=== PATIENT | female | born 1940 | race Hispanic/Latino ===

== ENCOUNTER → 2019-12-18 | Day surgery (SDC) | payer OTHER ==
--- NOTE | 2019-12-16 15:30 | EKG ---
Test Date: 2019-12-16 Test Time: 15:25:16 Groundman/Lineman: KAILASH MEASUREMENT RESULTS: Intervals: Rate: 88 IL: 150 QRSD: 132 QT: 436 QTc: 527 [place]: P: 64 IL: 150 QRS: -41 T: 81 INTERPRETIVE STATEMENTS: Normal sinus rhythm Left axis deviation Left bundle branch block Abnormal ECG No previous ECG available for comparison Electronically Signed On 12-16-19 15:29:36 WIRER by Remi Giron
[~2019-12-18] MED LIST: FENTANYL CITR 250 MCG/5 ML ONE; GLYCOPYRROLATE 0.2 MG/ML SYR ONE; INSULIN -REGULAR HUMAN 50 UNIT/0.5 ML ML ONE; LIDOCAINE 1% W/EPI 1:100,000 MDV 20 ML VIAL ONE; LIDOCAINE 2% MPF 5 ML VIAL ONE; MIDAZOLAM HCL 2 MG/2 ML INJ ONE; NA CHLORIDE 0.9% 1,000 ML ONE; NA CHLORIDE 0.9% 500 ML ONE; NEOSTIGMINE 1 MG/ML -5 ML ONE; OXYMETAZOLINE HCL 0.05% 15ML NAS ONE; ROCURONIUM 50 MG/5 ML VIAL IV ONE; TRAMADOL HCL 50 MG TAB ONE; dexAMETHasone 10 MG/ML VIAL ONE; propofoL 200 MG/20 ML VIAL IV ONE
--- OUTSIDE RECORDS SUMMARY | 2019-12-18 08:49 | XMS REPORT ---
:1940 Author Organization eClinicalWorks Care Team Providers Name Role Phone Chun, Na Provider Role Unavailable Allergies No Known Allergies Problems Problem Type Condition Code Onset Dates Condition Status Problem Closed nondisplaced transverse S82.034A Active fracture of right patella, initial encounter Problem Chronic congestion of paranasal J32.9 Active sinus Problem Closed nondisplaced transverse S82.034D Active fracture of right patella with routine healing Assessment Type 2 diabetes mellitus without E11.9 Active complications Problem Pain, joint, knee, right M25.561 Active Problem Acquired hypothyroidism E03.9 Active Problem Overactive bladder N32.81 Active Problem Essential hypertension I10 Active Problem Gastroesophageal reflux disease, K21.9 Active esophagitis presence not specified Problem Age related osteoporosis, M81.0 Active unspecified pathological fracture presence Problem Type 2 diabetes mellitus without E11.9 Active complications Problem prison (current) use of insulin Z79.4 Active Medications Medication Code Code Instructions Start End Status Dosage System Date Date Accu-Chek NDC 14847865349 - twice a day Nov 25, Active as directed Softclix 2019 Lancets Accu-Chek NDC 0 - sc TWICE A Nov 19, Inactive as directed Softclix DAY 2019 Lancet Dev Results No Known Results Summary Purpose eClinicalWorks Submission
--- OUTSIDE RECORDS SUMMARY | 2019-12-18 08:49 | XMS REPORT ---
:1940 Author Organization eClinicalWorks Care Team Providers Name Role Phone Chun, Na Provider Role Unavailable Allergies, Adverse Reactions, Alerts Substance Reaction Event Type N.K.D.A. Info Not Available Non Drug Allergy Problems Problem Type Condition Code Onset Dates Condition Status Problem Closed nondisplaced transverse S82.034A Active fracture of right patella, initial encounter Problem Chronic congestion of paranasal J32.9 Active sinus Problem Closed nondisplaced transverse S82.034D Active fracture of right patella with routine healing Problem Acquired hypothyroidism E03.9 Active Assessment Age related osteoporosis, M81.0 Active unspecified pathological fracture presence Problem Overactive bladder N32.81 Active Assessment [facility] (current) use of insulin Z79.4 Active Problem Essential hypertension I10 Active Problem Gastroesophageal reflux disease, K21.9 Active esophagitis presence not specified Problem Age related osteoporosis, M81.0 Active unspecified pathological fracture presence Problem Type 2 diabetes mellitus without E11.9 Active complications 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 Assessment Muscle cramps R25.2 Active Assessment Gastroesophageal reflux disease, K21.9 Active esophagitis presence not specified Assessment Vertigo R42 Active Assessment Chronic congestion of paranasal J32.9 Active sinus Assessment Essential hypertension I10 Active Assessment Type 2 diabetes mellitus without E11.9 Active complications Assessment Overactive bladder N32.81 Active Assessment Acquired hypothyroidism E03.9 Active Problem Pain, joint, knee, right M25.561 Active Medications Medication Code Code Instructions Start End Status Dosage System Date Date Myrbetriq [facility] 95400659386 25 MG Orally Nov 19April Active 1 tablet Once a day 2019 Metformin HCl [facility] 90636587656 1000 MG Oral Active 1 tablet TWICE A DAY with a meal Levothyroxine Sodium [facility] 42302647396 75 MCG Oral Active 1 tablet Once a day in the morning on an empty stomach MAGnesium-Oxide [facility] 09806022393 400 (241.3 Mg) Active 1 tablet MG Orally Once with food a day Myrbetriq [facility] 02276951895 25 MG Orally Active 1 tablet Once a day Cranberry Plus [facility] 39956356438 4200-20-3 Active as Vitamin C MG-MG-UNIT directed Orally daily Accu-Chek Softclix ND 0 - sc TWICE A Nov 19, Active as Lancet Dev DAY 2019 directed Unifine Pentips [facility] 83813794359 31G X 6 MM sc Nov 19, Active as TWICE A DAY 2019 directed Omeprazole [facility] 30408575421 20 MG Oral Active 1 capsule Once a day 30 minutes before morning meal Hydrochlorothiazide [facility] 70000791012 12.5 MG Orally Active 1 tablet ONCE A DAY Amlodipine Besylate [facility] 41882237867 2.5 MG Orally Active 1 tablet Once a day Levemir FlexTouch [facility] 09534117571 100 UNIT/ML Active 40 units Subcutaneous twice a day D3 High Potency [facility] 25507978235 125 MCG (5000 Active 1 capsule UT) Orally Once a day Levemir FlexTouch [facility] 45015692057 Sub Q daily Nov 19, Active 15 unis in 2019 AM and 25 units in PM Accu-Chek Avani Plus [facility] 05570563794 - In Vitro Nov 19, Active as twice daily 2019 directed Results No Known Results Summary Purpose eClinicalWorks Submission
--- NOTE | 2019-12-18 12:26 | P.BOP ---
Preoperative diagnosis: chronic maxillary sinusitis Postoperative diagnosis: same Primary procedure: NE with R max antrostomy and removal of sinus contents Operator Catalyst Concentration: NONE,NONE Estimated blood loss: 30ml Specimen: R max sinus/contents and culture Findings: thick green debris Anesthesia: General Complications: None Implants: Xerogel Fluids & blood products: 750ml crystalloid Transferred to: Recovery Room Condition: Good
[2019-12-18 15:12] VITALS: BP 135/60; TEMP 98; O2SAT 96
--- NOTE | 2019-12-21 02:47 | OP ---
Date of Procedure: 12/18/2019 Surgeon: Ivette Washburn MD Preoperative Diagnoses: Chronic hoarseness, chronic maxillary sinusitis with postnasal drainage. Postoperative Diagnoses: Chronic hoarseness, chronic maxillary sinusitis with postnasal drainage. Procedure: Nasal endoscopy with maxillary antrostomy and removal of sinus contents. Complications: None. Specimens: Right maxillary sinus contents and culture. Findings: Thick purulent postnasal drainage with very thick debris concerning for a fungal ball. Indication For Procedure: The patient is a 79-year-old who presented with a 6 month history of hoars eness, chronic cough, and postnasal drainage. During her evaluation, she was noted to have thick pur ulence from the right sinus cavity and was treated with maximal medical therapy. She had persistent symptoms with significant endoscopic findings with the drainage from the right middle meatus and a po sttreatment CT scan demonstrated new complete opacification of the right maxillary sinus. The risks, benefits, and alternatives were discussed with the patient and her daughter. They agreed to proceed . Description Of Procedure: The patient was brought to the operating room. She was placed under gener al anesthesia via oral endotracheal tube. The head of bed was turned 90 degrees and the patient's na fany hairs were trimmed. The patient's nasal cavity was packed with Afrin-soaked pledgets and the pat ient was draped for sinonasal surgery. The Afrin-soaked pledgets were removed and a 0-degree endosco pe was used to perform a nasal endoscopy. Significant findings included inflammation in the middle m eatus with severe erythema of the ethmoid bulla and thick purulent secretions at the leading edge of the uncinate process with thick mucopurulent secretions flowing from the middle meatus to the nasopha rynx so the documentation was obtained. The uncinate process was then carefully palpated with the lester mcintoshllary seeker and removed using the backbiter and 90-degree Blakesley. The maxillary sinus was fill ed with thick, crumbly, dark green material. The maxillary antrostomy was enlarged using the 90 degr ee Blakesley and the sinus contents were removed using forceful saline irrigation and suction. Numer ous aliquots of saline and suctioning were required. There was persistence of thick degree in the in ferior aspect and visualized with a 70 degree endoscope. The 90 degree curette was used to try to mo bilize and loosen this debris. When all visible debris was removed, the sinus was thoroughly irrigat ed and a Xeroform dissolvable nasal dressing was packed in the middle meatus to aid in hemostasis. S ample of the material was sent for culture including fungal stain. The procedure was then concluded and the patient returned to care of anesthesia for extubation in the operating room and transportatio n to the recovery room. The patient will follow up with Dr. Washburn in 10-12 days for evaluating of hearing. GIANNI/LITO Voice ID: [id number] Report ID: [id number]
== END ==
LOC: OR 08:46
PROVIDERS: ATTEND Otolaryngology
PROC: 099Q8ZZ Drainage of Right Maxillary Sinus, Via Natural or Artificial Opening Endoscopic (ICD-10-PCS; principal; 2019-12-18 10:00)
DX: J32.0 Chronic maxillary sinusitis (principal); R49.0 Dysphonia; E11.9 Type 2 diabetes mellitus without complications; I10 Essential (primary) hypertension; E07.9 Disorder of thyroid, unspecified
CPT/HCPCS: 93005; 87070; 87205 ×2; 88312; 82947 ×3; 88304; 88311; 87075; 87077; 87186; 31267; J2704; J2250; J3010; J1100; J7040; J7030; J2710

== ENCOUNTER 2020-02-15 22:42 | Emergency (ER) | payer OTHER ==
--- OUTSIDE RECORDS SUMMARY | 2020-02-15 22:45 | XMS REPORT ---
[...] of right patella with routine healing Assessment Asymptomatic postmenopausal Z78.0 Active estrogen deficiency Assessment Medicare annual wellness visit, Z00.00 Active subsequent Problem Pain, joint, knee, right M25.561 Active Problem Acquired hypothyroidism E03.9 Active Problem Overactive bladder N32.81 Active Problem Essential hypertension I10 Active Problem Gastroesophageal reflux disease, K21.9 Active esophagitis presence not specified Problem Age related osteoporosis, M81.0 Active unspecified pathological fracture presence Problem Type 2 diabetes mellitus without E11.9 Active complications Problem 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 Medications Medication Code Code Instructions Start End Status Dosage System Date Date Accu-Chek Avani Plus ND 83820229712 - In Vitro Nov 19, Active as twice daily 2019 directed Unifine Pentips ND 66469815910 31G X 6 MM sc Nov 19, Active as TWICE A DAY 2019 directed Hydrochlorothiazide ND 04853884720 12.5 MG Orally Active 1 tablet ONCE A DAY Myrbetriq ND 43155165588 25 MG Orally Active 1 tablet Once a day D3 High Potency ND 95462759647 125 MCG (5000 Active 1 capsule UT) Orally Once a day Levemir FlexTouch ND 49040732461 Sub Q daily Nov 19, Active 15 unis in 2020 AM and 25 units in PM Metformin HCl ND 26866167237 1000 MG Oral Active 1 tablet TWICE A DAY with a meal Levothyroxine Sodium ND 50517943226 75 MCG Oral Active 1 tablet Once a day in the morning on an empty stomach Amlodipine Besylate [facility] 45056227692 2.5 MG Orally Active 1 tablet Once a day Cranberry Plus [facility] 86929937850 4200-20-3 Active as Vitamin C MG-MG-UNIT directed Orally daily Levemir FlexTouch [facility] 26345907545 100 UNIT/ML Active 40 units Subcutaneous twice a day Accu-Chek Softclix [facility] 24858825363 - twice a day Nov 25 Active as Lancets 2020 directed MAGnesium-Oxide [facility] 52844857528 400 (241.3 Mg) Active 1 tablet MG Orally Once with food a day Myrbetriq [facility] 70239894708 25 MG Orally Nov 19April Active 1 tablet Once a day 2019 Omeprazole [facility] 06503725295 20 MG Oral Active 1 capsule Once a day 30 minutes before morning meal Results No Known Results Summary Purpose eClinicalWorks Submission
--- OUTSIDE RECORDS SUMMARY | 2020-02-15 22:45 | XMS REPORT ---
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 Assessment [...] End Status Dosage System Date Date Myrbetriq [facility] 03303195671 25 MG Orally Nov 19April Active 1 tablet Once a day 2019 Metformin HCl [facility] 85961907733 1000 MG Oral Active 1 tablet TWICE A DAY with a meal Levothyroxine Sodium [facility] 32240095852 75 MCG Oral Active 1 tablet Once a day in the morning on an empty stomach MAGnesium-Oxide [facility] 78443299466 400 (241.3 Mg) Active 1 tablet MG Orally Once with food a day Myrbetriq [facility] 59429730629 25 MG Orally Active 1 tablet Once a day Cranberry Plus [facility] 95379235406 4200-20-3 Active as Vitamin C MG-MG-UNIT directed Orally daily Accu-Chek Softclix ND 0 - sc TWICE A Nov 19, Active as Lancet Dev DAY 2019 directed Unifine Pentips [facility] 37790465521 31G X 6 MM sc Nov 19, Active as TWICE A DAY 2019 directed Omeprazole [facility] 15859742449 20 MG Oral Active 1 capsule Once a day 30 minutes before morning meal Hydrochlorothiazide [facility] 83646051090 12.5 MG Orally Active 1 tablet ONCE A DAY Amlodipine Besylate [facility] 54778458147 2.5 MG Orally Active 1 tablet Once a day Levemir FlexTouch [facility] 25573057481 100 UNIT/ML Active 40 units Subcutaneous twice a day D3 High Potency [facility] 69348059831 125 MCG (5000 Active 1 capsule UT) Orally Once a day Levemir FlexTouch [facility] 56471627318 Sub Q daily Nov 19, Active 15 unis in 2019 AM and 25 units in PM Accu-Chek Avani Plus [facility] 39532191626 - In Vitro Nov 19, Active as twice daily 2019 directed Results No Known Results Summary Purpose eClinicalWorks Submission
--- OUTSIDE RECORDS SUMMARY | 2020-02-15 22:45 | XMS REPORT ---
[...] diabetes mellitus without E11.9 Active complications Problem assisted (current) use of insulin Z79.4 Active Medications Medication Code Code Instructions Start End Status Dosage System Date Date Accu-Chek NDC 01299149472 - twice a day Nov 25, Active as directed Softclix 2019 Lancets Accu-Chek NDC 0 - sc TWICE A Nov 19, Inactive as directed Softclix DAY 2019 Lancet Dev Results No Known Results Summary Purpose eClinicalWorks Submission
--- OUTSIDE RECORDS SUMMARY | 2020-02-15 22:45 | XMS REPORT ---
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
[2020-02-15] MEDS ORDERED: MORPHINE 2 MG/ML SYR ONE (23:21)
[2020-02-15] MEDS ORDERED: ONDANSETRON 4 MG/2 ML VIAL ONE (23:21)
[2020-02-15 23:42] LABS: Basophils % 0.5 % (0-1.3); Hematocrit 41.2 % (36.0-45.0); Lymphocytes % 15.9 % (15.3-44.8); MPV 9.3 fL (7.6-11.3); RBC Red Blood Cell Count 4.99 M/uL (3.86-4.86)
[2020-02-15 23:51] LABS: ALT/SGPT 28 U/L (12-78); AST/SGOT 14 U/L (15-37); Albumin 3.7 g/dL (3.4-5.0); Alkaline Phosphatase 142 U/L (45-117); BUN Blood Urea Nitrogen 26 mg/dL (7-18); Bicarbonate 28 mmol/L (21-32); Bilirubin Direct < 0.1 mg/dL (0-0.2); Bilirubin Total 0.1 mg/dL (0.2-1.0); Glucose Level 190 mg/dL (74-106); Lipase 272 U/L (73-393); Potassium 4.3 mmol/L (3.5-5.1); Protein, Total 8.3 g/dL (6.4-8.2); Sodium Level 137 mmol/L (136-145)
[2020-02-16 00:33] LABS: Urine Culture Reflex Order NOT NEEDED
[2020-02-16 00:34] LABS: Urine Blood NEGATIVE (NEG); Urine Glucose TRACE (NEG); Urine Protein NEGATIVE (NEG); Urine Specific Gravity 1.025 (1.005-1.030); Urine pH 6.5 (5.0-7.0)
[2020-02-16 00:35] LABS: Urine Bacteria LOADED /HPF (<20); Urine RBC <5 /HPF (NONE SEEN)
--- NOTE | 2020-02-16 02:50 | EDPHYS ---
Physician Documentation [facility] [place] Name: Jennifer Whittaker Age: 79 yrs Sex: Female : 1940 Arrival Date: 02/15/2020 Time: 22:45 Bed 20 Private MD: YONATHAN Physician Feliciano Dixon HPI: 02/14 23:06 This 79 yrs old Female presents to ER via Wheelchair with complaints of jmm Abdominal Pain, Side Pain. 23:06 The patient presents with abdominal pain. Onset: The symptoms/episode began/occurred jmm gradually, at 11:00. The symptoms radiate to. Associated signs and symptoms: Pertinent negatives: diarrhea, vomiting. Modifying factors: The symptoms are alleviated by nothing, the symptoms are aggravated by movement. Historical: - Allergies: 23:03 No Known Allergies; mg2 - Home Meds: 23:03 Omeprazole Oral [Active]; rosuvastatin oral oral [Active]; amlodipine oral [Active]; mg2 magnesium oxide 400 mg Oral tab [Active]; cranberry oral oral [Active]; Metformin Oral [Active]; Hydrochlorothiazide Oral [Active]; levothyroxine oral [Active]; - PMHx: 23:03 Hypertension; Hyperlipidemia; Diabetes - IDDM; Hypothyroidism; mg2 - PSHx: 23:03 Cholecystectomy; Hysterectomy; kidney stones removal; mg2 - Immunization history:: Flu vaccine is not up to date. - Social history:: Smoking status: Patient denies any tobacco usage or history of. Patient/guardian denies using alcohol, street drugs, IV drugs. ROS: 23:06 Constitutional: Negative for fever, chills, and weight loss, Cardiovascular: Negative jmm for chest pain, palpitations, and edema, Respiratory: Negative for shortness of breath, cough, wheezing, and pleuritic chest pain. 23:06 Abdomen/GI: Positive for abdominal pain. 23:06 Back: Positive for pain with movement. 23:06 All other systems are negative. Exam: 23:06 Head/Face: atraumatic. Eyes: EOMI, no conjunctival erythema appreciated ENT: Moist jmm Mucus Membranes Neck: Trachea midline, Supple Chest/axilla: Normal chest wall appearance and motion. Cardiovascular: Regular rate and rhythm. No edema appreciated Respiratory: Normal respirations, no respiratory distress appreciated 23:06 Constitutional: The patient appears alert, awake, uncomfortable. 23:06 Abdomen/GI: Inspection: abdomen appears normal, Bowel sounds: normal, Palpation: soft, moderate abdominal tenderness, in the right upper quadrant and right lower quadrant. 23:06 Musculoskeletal/extremity: ROM: intact in all extremities. 23:06 Skin: Appearance: Color: normal in color. 23:06 Neuro: Orientation: is normal, Mentation: is normal, Memory: is normal. 23:06 Psych: Behavior/mood is pleasant, cooperative. Vital Signs: 22:57 BP 163 / 89; Pulse 76; Resp 18; Temp 97.6; Pulse Ox 100% on R/A; Weight 57.61 kg; mg2 Height 5 ft. 0 in. (152.40 cm); 02/15 00:07 BP 142 / 79; Pulse 80; Resp 18; Pulse Ox 100% on R/A; mg2 01:30 BP 126 / 86; Pulse 78; Resp 18; Pulse Ox 96% on R/A; mg2 02:41 BP 114 / 67; Pulse 94; Resp 18; Pulse Ox 95% on R/A; mg2 02/14 22:57 Body Mass Index 24.80 (57.61 kg, 152.40 cm) mg2 MDM: 02/14 22:57 Patient medically screened. [facility] 02/15 02:48 Data reviewed: vital signs, nurses notes. Counseling: I had a detailed discussion with [facility] the patient and/or guardian regarding: the historical points, exam findings, and any diagnostic results supporting the discharge/admit diagnosis, lab results, radiology results, the need for outpatient follow up, to return to the emergency department if symptoms worsen or persist or if there are any questions or concerns that arise at home. 02/14 23:02 Order name: Basic Metabolic Panel; Complete Time: 23:52 [facility] 02/14 23:02 Order name: CBC with Diff; Complete Time: 23:48 [facility] 02/14 23:02 Order name: Creatinine for Radiology; Complete Time: 23:52 [facility] 02/14 23:02 Order name: Hepatic Function; Complete Time: 23:52 [facility] 02/14 23:02 Order name: Lipase; Complete Time: 23:52 [facility] 02/14 23:49 Order name: Urine Dipstick--Ancillary (enter results); Complete Time: 00:38 mw2 02/14 23:02 Order name: IV Saline Lock; Complete Time: 23:25 [facility] 02/14 23:02 Order name: Labs collected and sent; Complete Time: 23:25 [facility] 02/14 23:02 Order name: CT Abd/Pelvis - IV Contrast Only [facility] 02/14 23:02 Order name: Urine Dipstick-Ancillary (obtain specimen); Complete Time: 23:49 [facility] 02/15 00:02 Order name: Urine Microscopic Only; Complete Time: 00:38 [facility] [place] 00:02 Order name: Urine Culture mg2 Administered Medications: 02/14 23:24 Drug: morphine 2 mg Route: IVP; Site: right antecubital; mg2 02/15 00:03 Follow up: Response: No adverse reaction; RASS: Alert and Calm (0) [facility] [place] 23:24 Drug: Zofran (Ondansetron) 4 mg Route: IVP; Site: right antecubital; mg2 02/15 00:03 Follow up: Response: No adverse reaction mg2 Disposition: 02:48 Chart complete. [facility] 05:23 Co-signature as Attending Physician, Feliciano Dixon MD I agree with the assessment and 4 plan of care. Disposition: 02/16/20 02:49 Discharged to Home. Impression: Urinary tract infection, site not specified, Generalized abdominal pain. - Condition is Stable. - Discharge Instructions: Abdominal Pain, Adult, Urinary Tract Infection, Adult. - Prescriptions for Bentyl 20 mg Oral Tablet - take 2 tablet by ORAL route every 6 hours As needed; 40 tablet. Cephalexin 500 mg Oral Capsule - take 1 capsule by ORAL route every 12 hours for 10 days; 20 capsule. - Medication Reconciliation Form, Thank You Letter, Antibiotic Education, Prescription Opioid Use form. - Follow up: Private Physician; When: 2 - 3 days; Reason: Recheck today's complaints, Continuance of care, Re-evaluation by your physician. Signatures: Dispatcher [employer] EDMS Robinson Stanley PA PA Feliciano Michele MD MD tw4 Ayden Garza RN RN mg2 Corrections: (The following items were deleted from the chart) 03:06 02:49 02/16/2020 02:49 Discharged to Home. Impression: Urinary tract infection, site mg2 not specified; Generalized abdominal pain. Condition is Stable. Forms are Medication Reconciliation Form, Thank You Letter, Antibiotic Education, Prescription Opioid Use. Follow up: Private Physician; When: 2 - 3 days; Reason: Recheck today's complaints, Continuance of care, Re-evaluation by your physician. speedy
--- NOTE | 2020-02-16 02:50 | ER ---
Nurse's Notes [facility] Name: Jennifer Whittaker Age: 79 yrs Sex: Female : 1940 Arrival Date: 02/15/2020 Time: 22:45 Bed 20 Private MD: Diagnosis: Urinary tract infection, site not specified;Generalized abdominal pain Presentation: 02/14 22:57 Chief complaint: Patient states: i have right lower back pain after i used my bike for mg2 10 minutes this morning. denies fall or trauma. Coronavirus screen: Patient denies fever greater than 100.4F, cough, shortness of breath, or difficulty breathing. Proceed with normal triage process. Ebola Screen: No symptoms or risks identified at this time. Initial Sepsis Screen: Does the patient meet any 2 criteria? No. Patient's initial sepsis screen is negative. Does the patient have a suspected source of infection? No. Patient's initial sepsis screen is negative. Risk Assessment: Do you want to hurt yourself or someone else? Patient reports no desire to harm self or others. 22:57 Method Of Arrival: Wheelchair mg2 22:57 Acuity: OLIVER 4 mg2 02/15 01:11 Onset of symptoms was February 15, 2020. mg2 Historical: - Allergies: 02/14 23:03 No Known Allergies; mg2 - Home Meds: 23:03 Omeprazole Oral [Active]; rosuvastatin oral oral [Active]; amlodipine oral [Active]; mg2 magnesium oxide 400 mg Oral tab [Active]; cranberry oral oral [Active]; Metformin Oral [Active]; Hydrochlorothiazide Oral [Active]; levothyroxine oral [Active]; - PMHx: 23:03 Hypertension; Hyperlipidemia; Diabetes - IDDM; Hypothyroidism; mg2 - PSHx: 23:03 Cholecystectomy; Hysterectomy; kidney stones removal; mg2 - Immunization history:: Flu vaccine is not up to date. - Social history:: Smoking status: Patient denies any tobacco usage or history of. Patient/guardian denies using alcohol, street drugs, IV drugs. Screenin:21 Abuse screen: Denies threats or abuse. Denies injuries from another. Nutritional mg2 screening: No deficits noted. Tuberculosis screening: No symptoms or risk factors identified. Fall Risk IV access (20 points). Assessment: 23:22 General: Appears in no apparent distress. comfortable, Behavior is calm, cooperative. mg2 Pain: Complains of pain in back. Neuro: Level of Consciousness is awake, alert, obeys commands, Oriented to person, place, time, situation. Cardiovascular: Capillary refill < 3 seconds Patient's skin is warm and dry. Respiratory: Airway is patent Respiratory effort is even, unlabored, Respiratory pattern is regular, symmetrical. GI: Bowel sounds present X 4 quads. Abd is soft and non tender X 4 quads. : No signs and/or symptoms were reported regarding the genitourinary system. EENT: No signs and/or symptoms were reported regarding the EENT system. Derm: Skin is intact, is healthy with good turgor, Skin is pink, warm \T\ dry. normal. Musculoskeletal: Circulation, motion, and sensation intact. Capillary refill < 3 seconds, Reports pain in back. 02/15 01:11 Reassessment: Patient appears in no apparent distress at this time. Patient and/or mg2 family updated on plan of care and expected duration. Pain level reassessed. Patient is alert, oriented x 3, equal unlabored respirations, skin warm/dry/pink. 02:41 Reassessment: Patient appears in no apparent distress at this time. Patient and/or mg2 family updated on plan of care and expected duration. Pain level reassessed. Patient is alert, oriented x 3, equal unlabored respirations, skin warm/dry/pink. Patient denies pain at this time. Patient states feeling better. Vital Signs: 02/14 22:57 BP 163 / 89; Pulse 76; Resp 18; Temp 97.6; Pulse Ox 100% on R/A; Weight 57.61 kg; mg2 Height 5 ft. 0 in. (152.40 cm); 02/15 00:07 BP 142 / 79; Pulse 80; Resp 18; Pulse Ox 100% on R/A; mg2 01:30 BP 126 / 86; Pulse 78; Resp 18; Pulse Ox 96% on R/A; mg2 02:41 BP 114 / 67; Pulse 94; Resp 18; Pulse Ox 95% on R/A; mg2 02/14 22:57 Body Mass Index 24.80 (57.61 kg, 152.40 cm) mg2 ED Course: 02/14 22:45 Patient arrived in ED. ds1 22:50 Ayden Garza, RN is Primary Nurse. mg2 22:56 Mickail, Robinson, PA is PHCP. jmm 22:56 Feliciano Dixon MD is Attending Physician. jmm 22:59 Triage completed. mg2 22:59 Arm band placed on. mg2 23:15 Inserted saline lock: 20 gauge in right antecubital area, using aseptic technique. mg2 Blood collected. 23:22 No provider procedures requiring assistance completed. mg2 23:24 Patient has correct armband on for positive identification. mg2 23:35 Radiology exam delayed due to lab results not completed at this time. (BUN/Creatinine). kw1 02/15 02:10 CT Abd/Pelvis - IV Contrast Only In Process Unspecified. EDMS 03:05 IV discontinued, intact, bleeding controlled, No redness/swelling at site. Pressure mg2 dressing applied. Administered Medications: 02/14 23:24 Drug: morphine 2 mg Route: IVP; Site: right antecubital; mg2 02/15 00:03 Follow up: Response: No adverse reaction; RASS: Alert and Calm (0) mg2 02/14 23:24 Drug: Zofran (Ondansetron) 4 mg Route: IVP; Site: right antecubital; mg2 02/15 00:03 Follow up: Response: No adverse reaction mg2 Outcome: 02:49 Discharge ordered by MD. [facility] 03:06 Discharged to home via wheelchair. mg2 03:06 Condition: stable 03:06 Discharge instructions given to patient, Instructed on discharge instructions, follow up and referral plans. medication usage, Demonstrated understanding of instructions, follow-up care, medications, Prescriptions given X 2. 03:06 Patient left the ED. mg2 Addendum: 02/19/2020 07:24 Addendum: Culture Results: Positive urine culture. No further action required. Bacteria e b sensitive to prescribed antibiotic. Signatures: Dispatcher [employer] EDMS Robinson Stanley PA PA jmm Sanford, Demi ds1 Latoya Garcia kw1 Dee Dee Everett Michele, RN RN mg2 Corrections: (The following items were deleted from the chart) 02/14 23:04 22:57 Chief complaint: Patient states: i have right lower back pain after i used my mg2 bike for 10 minutes this morning. denies fall or trauma. mg2 23:14 22:57 Chief complaint: Patient states: i have right lower back pain after i used my mg2 bike for 10 minutes this morning. denies fall or trauma. patient also complained of right sided abdominal pain. mg2
[2020-02-16 03:14] VITALS: TEMP 97.6
[2020-02-16 03:18] VITALS: BP 114/67; O2SAT 95
--- NOTE | 2020-02-16 12:02 | RAD REPORT ---
EXAM DESCRIPTION: CT - Abdomen Pelvis W Contrast - 02/16/2020 3:03 am CLINICAL HISTORY: Abdominal pain COMPARISON: None Available. TECHNIQUE: CT of the abdomen and pelvis performed following IV administration of iodinated contrast. FINDINGS: Lung Bases: Visualized lung bases are clear. Bones: No destructive bone lesions identified. Osteopenia. Multilevel degenerative disc height narrow ing with endplate spondylosis and facet arthropathy throughout the spine. Interspace narrowing and ma rginal osteophytosis Abdomen: Liver: The liver has normal size and decreased density. No intrahepatic biliary dilatation. Gallbladder: Prior cholecystectomy. Spleen, Pancreas, and Adrenal Glands: The spleen, pancreas, and adrenal glands are unremarkable. Kidneys: No hydronephrosis or obstructing calculus. Nonobstructing inferior pole left nephrolithi asis. Vasculature: Aortoiliac atherosclerosis. IVC is unremarkable. The portal vein is patent. The proxim al visceral and renal arteries are patent. Stomach: The stomach and duodenum have normal course. Other: No free intraperitoneal air. Minimal fat stranding of indeterminate etiology in the tenia so ft tissues of the anterior abdominal wall. No free fluid or lymphadenopathy. Pelvis: Bladder: Urinary bladder is unremarkable. Bowel: No dilated loops of large or small bowel. Mild wall thickening of the small bowel. Appendix: Normal appendix. Pelvis: Prior hysterectomy. IMPRESSION: 1. Mild nonspecific wall thickening of the small bowel. This may be related to under dis tention however mild enteritis contour is a similar appearance. 2. Nonobstructing left nephrolithiasis. 3. Hepatic steatosis. 4. Multilevel degenerative change of the lumbar spine. This exam was performed according to our departmental dose-optimization program, which includes autom ated exposure control, adjustment of the mA and/or kV according to patient size and/or use of iterati ve reconstruction technique. Electronically signed by: Lux Pagan 02/16/2020 2:24 AM CDT Due to temporary technical issues with the PACS/Fluency reporting system, reports are being signed by the in house radiologist as a courtesy to ensure prompt reporting. The interpreting radiologist is f ully responsible for the content of the report.
== END 2020-02-16 03:06 | disposition home or self-care (01) ==
LOC: ER 22:42
DX: N39.0 Urinary tract infection, site not specified (principal); I10 Essential (primary) hypertension; E11.9 Type 2 diabetes mellitus without complications; E78.5 Hyperlipidemia, unspecified; E03.9 Hypothyroidism, unspecified
CPT/HCPCS: 87088; 85025; 87086; 80048; 36415; 80076; 81003; 81015; 83690; 74177; Q9967; J2270; J2405; 87077; 87186; 96374; 96375; 99284

== ENCOUNTER 2020-12-27 14:29 | Emergency (ER) | payer OTHER ==
--- NOTE | 2020-12-27 19:09 | ER ---
Nurse's Notes [facility] Name: Jennifer Whittaker Age: 80 yrs Sex: Female : 1940 Arrival Date: 12/27/2020 Time: 14:31 Bed Waiting Private MD: Diagnosis: Presentation: 12/27 14:40 Chief complaint: Patient states: Accidentally kicked the concrete at noon today. Right ll1 foot 1st digit laceration across toe. Bleeding controlled, cleaned with alcohol. Coronavirus screen: Client denies travel out of the [place] in the last 14 days. At this time, the client does not indicate any symptoms associated with coronavirus-19. Ebola Screen: Patient denies travel to an Ebola-affected area in the 21 days before illness onset. Initial Sepsis Screen: Does the patient meet any 2 criteria? HR > 90 bpm. No. Patient's initial sepsis screen is negative. Does the patient have a suspected source of infection? Yes: Skin breakdown/wound. Risk Assessment: Do you want to hurt yourself or someone else? Patient reports no desire to harm self or others. Onset of symptoms was December 27, 2020. 14:40 Method Of Arrival: Ambulatory ll1 14:40 Acuity: OLIVER 4 ll1 Historical: - Allergies: 14:42 No Known Allergies; ll1 - PMHx: 14:42 Hyperlipidemia; Hypothyroidism; Diabetes - IDDM; Hypertension; ll1 - PSHx: 14:42 Hysterectomy; Cholecystectomy; kidney stones removal; ll1 - Immunization history:: Flu vaccine is not up to date. - Social history:: Smoking status: Patient denies any tobacco usage or history of. Vital Signs: 14:40 Pulse 92; Resp 17; Temp 97.5; Pulse Ox 97% ; Weight 62.14 kg; Height 4 ft. 8 in. ll1 (142.24 cm); Pain 0/10; 14:40 Body Mass Index 30.71 (62.14 kg, 142.24 cm) ll1 ED Course: 14:31 Patient arrived in ED. as 14:42 Triage completed. ll1 14:42 Arm band placed on. ll1 Administered Medications: No medications were administered Outcome: 19:08 Patient left the ED. 1 Signatures: Ivania Ferrer Lynsay RN RN ll1
[2020-12-27 19:28] VITALS: BP 153/100; TEMP 98.8; O2SAT 100
[2020-12-27] MEDS ORDERED: METHYLPREDNISOLONE 125 MG INJ ONE (20:18)
--- OUTSIDE RECORDS SUMMARY | 2020-12-28 10:52 | XMS REPORT ---
:1940 Author Organization [facility] Address [address] [place], [facility] [address] [place] [address] Care Team Providers Name Role Phone Adiel Unavailable [phone] PROBLEMS Type Condition ICD9-CM [id number] Onset Condition SNOMED Code Notes Code Code Dates Status Problem Closed nondisplaced S82.034A Active 004676937 transverse fracture of right patella, initial encounter Problem Pain, joint, knee, M25.561 Active 88320270 right Problem Chronic congestion J32.9 Active 52989366 of paranasal sinus Problem Closed nondisplaced S82.034D Active 449164249 transverse fracture of right patella with routine healing Problem Essential I10 Active 73864325 hypertension Problem Age related M81.0 Active 400027077 osteoporosis, unspecified pathological fracture presence Problem Gastroesophageal K21.9 Active 130352415 reflux disease, esophagitis presence not specified Problem assisted (current) Z79.4 Active 442360653 use of insulin Problem Type 2 diabetes E11.9 Active 379529760 mellitus without complications Problem Diabetic E11.42 Active 321734385 polyneuropathy associated with type 2 diabetes mellitus Problem Acquired E03.9 Active 455327996 hypothyroidism Problem Decreased hearing H91.93 Active 906171479 of both ears Problem Overactive bladder N32.81 Active 459040080 Problem Type 2 diabetes E11.69 Active 62464149596664 mellitus with other specified complication Problem Type 2 diabetes E11.29 Active 907329649 mellitus with other diabetic kidney complication Problem Postmenopausal N95.2 Active 97471950 atrophic vaginitis Problem Hyperlipidemia, E78.5 Active 72660039 unspecified ALLERGIES No Known Allergies ENCOUNTERS from 1940 to 2020-10-18 Encounter Location Date [facility] Oct, Na Adiel Typ e 2 diabetes mellitus Family Medicine [address], [place] [address] kidney complic ation E11.29 ; Acquir ed hypothyroidism E03.9 ; Essential hyper tension I10 and Hyperli pidemia, unspecified E78 .5 IMMUNIZATIONS No Information SOCIAL HISTORY Tobacco Use: Social History Observation Description Date Details (start date - stop date) Never Smoker Sex Assigned At : Social History Observation Description Sex Assigned At Unknown Alcohol Screen Question Answer Notes Did you have a drink containing alcohol in the past year? No Points 0 Interpretation Negative Tobacco Use/Smoking Question Answer Notes Are you a never smoker REASON FOR REFERRAL No Information VITAL SIGNS No information MEDICATIONS Medication SIG (Take, Route, Notes Start Date End Date Status Frequency, Duration) Omeprazole 20 MG 1 capsule 30 minutes Active before morning meal Oral Once a day for 90 days Metformin HCl 1000 MG 1 tablet with a meal Active Oral TWICE A DAY for 90 days D3 High Potency 125 MCG (5000 1 capsule Orally Once Active UT) a day Hydrochlorothiazide 12.5 MG 1 tablet Orally ONCE Active A DAY for 90 days Accu-Chek Avani Plus - HACER PRUEBA 2 VECES Active AL LAVINIA RENY INDICADO for 90 Levemir FlexTouch 100 UNIT/ML INYECTE 15 UNIDADES Active POR VIA SUBCUTANEA EN LA MANANA Y INYECTE 25 UNIDADES POR VIA SUBCUTANEA EN LA TARDE for 90 Amlodipine Besylate 10 MG 1 tablet Orally Once Active a day for 90 days Unifine Pentips 31G X 6 MM USE POR VIA Active SUBCUTANEA 2 VECES AL LAVINIA RENY INDICADO Levemir FlexTouch 15 unis in AM and 25 Active units in PM Sub Q daily for 90 days Alendronate Sodium 70 MG 1 tablet Orally Once Active a week for 90 days Accu-Chek Softclix Lancet Dev - as directed sc TWICE Active A DAY for 90 DAYS Levothyroxine Sodium 75 MCG TOME 1 TABLETA KEYSHAWN Active VEZ AL LAVINIA EN LA MANANA EN AYUNAS for 90 Accu-Chek Softclix Lancets - HACER PRUEBA 2 VECES Active AL LAVINIA RENY INDICADO for 90 Myrbetriq 25 MG TOME 1 TABLETA KEYSHAWN A ctive VEZ AL LAVINIA for 90 Rosuvastatin Calcium 5 MG 1 tablet Orally Once Active a day at bedtime for 90 days Cranberry Plus Vitamin C as directed Orally Active 4200-20-3 MG-MG-UNIT daily MAGnesium-Oxide 400 (241.3 Mg) 1 tablet with food Active MG Orally Once a day for 90 days PROCEDURES No Information RESULTS No Results REASON FOR VISIT No Information MEDICAL (GENERAL) HISTORY Type Description Date Medical History DIABETES Medical History HYPERTENSION Surgical History GALLBLADDER 1984 Surgical History HYSTERECTOMY 1984 Surgical History RT HAND Surgical History RT KNEE Surgical History kidney stone 1985 Goals Section No Information Health Concerns No Information MEDICAL EQUIPMENT No Information MENTAL STATUS No Information FUNCTIONAL STATUS No Information ASSESSMENTS Encounter Date Diagnosis Assessment Notes Treatment Notes Treatm ent Clinical Notes Oct, Type 2 diabetes mellitus with other diabetic kidney complication (ICD-10 - E11.29) Oct, Acquired hypothyroidism (ICD-10 - E03.9) Oct, Essential hypertension (ICD-10 - I10) Oct, Hyperlipidemia, unspecified (ICD-10 - E78.5) PLAN OF TREATMENT Medication Medication Name Sig Start Date Stop Date Unifine Pentips 31G X 6 MM USE POR VIA SUBCUTANEA 2 VECES AL LAVINIA RENY INDICADO Rosuvastatin Calcium 5 MG 1 tablet Orally Once a day at bedtime for 90 days Myrbetriq 25 MG TOME 1 TABLETA KEYSHAWN VEZ AL LAVINIA for 90 Amlodipine Besylate 10 MG 1 tablet Orally Once a day for 90 days Metformin HCl 1000 MG 1 tablet with a meal Oral TWICE A DAY for 90 days Levothyroxine Sodium 75 MCG TOME 1 TABLETA KEYSHAWN VEZ AL LAVINIA EN LA MANANA EN AYUNAS for 90 Hydrochlorothiazide 12.5 MG 1 tablet Orally ONCE A DAY for 90 days Omeprazole 20 MG 1 capsule 30 minutes before morning meal Oral Once a day for 90 days Treatment Notes Test Name Order Date Lipid Panel w/ Chol/HDL Ratio 2020-10-18 Microalbumin/Creat Ratio, Random Ur 2020-10-18 Hemoglobin A1c 2020-10-18 Comp. Metabolic Panel (14) (CMP) 2020-10-18 CBC With Differential/Platelet 2020-10-18 TSH reflex to T4F 2020-10-18 Next Appt Details Provider Name:Brit Chun, 2020-12-23 01:4 0:00 PM, [address], [place], [address], Insurance Providers Payer Name Payer Address Payer Insured Patient Coverage Cover age End Phone Name Relationship to Start Date Domenic e Insured [employer] [address] [address] [phone] Jennifer Whittaker [place] [id number]
--- OUTSIDE RECORDS SUMMARY | 2020-12-28 10:52 | XMS REPORT | Continuity of Care Document ---
:1940 Author Organization [facility] t Address [address] [place] [address] Care Team Providers Name Role Phone Unavailable Unavailable Unavailable Problems This patient has no known problems. Allergies, Adverse Reactions, Alerts This patient has no known allergies or adverse reactions. Medications Ordered Filled Start Stop Current Ordering Indication Dosage Frequency Signature Comments Components Source Medication Medication Date Date Medication? Clinician (SIG) Name Name Amlodipine Amlodipine Yes Na Chun [address] [facility] Procedures This patient has no known procedures. Encounters Start End Encounter Admission Attending Care Care Encounter Source Date/Time Date/Time Type Type Clinicians Facility Department ID 2020-10-19 2020-10-[address] [facility] [id number] [facility] 2020-10-18 2020-10-[address] [facility] [id number] [facility] 2020-10-17 2020-10-[address] [facility] [id number] [facility] 2020-09-06 2020-09-[address] [facility] [id number] [facility] 2020-07-15 2020-07-15 [facility] [id number] [facility] 09:47:00 09:47:00 [facility] Medicine l Medicine Outpati ent Clinics 2020-06-15 2020-06-15 [facility] [id number] [facility] 09[facility]30:00 09:30:00 [facility] Medicine l Medicine Outpati ent Clinics 2020-06-11 2020-06-11 [facility] [id number] 19:02:00 19:02:00 [facility] Medicine l Medicine Outpati ent Clinics 2020-06-07 2020-06-07 Outpatient [facility] [id number] [facility] [employer] [facility] Outpati ent Clinics 2020-06-06 2020-06-06 [facility] [id number] 13:40:00 13:40:00 [facility] Medicine Medicine Outpati ent Clinics 2020-02-10 2020-02-10 [facility] [id number] [address] 10:10:00 10:10:00 [facility] [employer] Medicine l Medicine Outpati ent Clinics 2020-02-04 2020-02-04 [facility] [id number] [address] 13:00:00 13:00:00 [employer] [facility] Medicine l Medicine Outpati ent Clinics 2019-12-28 2019-12-28 [facility] [id number] [address] 17:21:00 17:21:00 [facility] [employer] Medicine l Medicine Outpati ent Clinics 2019-12-24 2019-12-24 [facility] [id number] 14:00:00 14:00:00 [facility] [employer] [facility] Medicine l Medicine Outpati ent Clinics 2019-11-25 2019-11-25 [facility] [id number] 16:56:00 16:56:00 [facility] [employer] [facility] Medicine l Medicine Outpati ent Clinics 2019-11-19 2019-11-19 [facility] [id number] 14:00:00 14:00:00 [employer] [place] [facility] Medicine Medicine Outpati ent Clinics Results This patient has no known results.
--- OUTSIDE RECORDS SUMMARY | 2020-12-28 10:52 | XMS REPORT ---
:1940 Author Organization [facility] Address [address] [place], [facility] [address] [place] [address] Care Team Providers Name Role Phone Adiel Unavailable [phone] PROBLEMS Type Condition ICD9-CM [id number] Onset Condition SNOMED Code Notes Code Code Dates Status Problem Closed nondisplaced S82.034A Active 345208576 transverse fracture of right patella, initial encounter Problem Pain, joint, knee, M25.561 Active 38470630 right Problem Essential I10 Active 04193548 hypertension Problem Closed nondisplaced S82.034D Active 859879345 transverse fracture of right patella with routine healing Problem Overactive bladder N32.81 Active 302524051 Problem Acquired E03.9 Active 779004930 hypothyroidism Problem Gastroesophageal K21.9 Active 159604313 reflux disease, esophagitis presence not specified Problem Chronic congestion J32.9 Active 09409067 of paranasal sinus Problem Age related M81.0 Active 129108597 osteoporosis, unspecified pathological fracture presence Problem Hyperlipidemia, E78.5 Active 87523225 unspecified 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 Active 614648862 use of insulin Problem Decreased hearing H91.93 Active 389013238 of both ears Problem Type 2 diabetes E11.9 Active 395967456 mellitus without complications Problem Diabetic E11.42 Active 535073639 polyneuropathy associated with type 2 diabetes mellitus Problem Type 2 diabetes E11.69 Active 02263910611883 mellitus with other specified complication Problem Type 2 diabetes E11.29 Active 610530306 mellitus with other diabetic kidney complication Problem Postmenopausal N95.2 Active 83380282 atrophic vaginitis ALLERGIES No Known Allergies ENCOUNTERS from 1940 to 2020-10-17 Encounter Location Date [facility] [address] Sep, Na Chun Typ e 2 diabetes Family Medicine [address], [place] [address] diabetic kidne y complication E1 1.29 IMMUNIZATIONS No Information SOCIAL HISTORY Tobacco Use: [...] Information RESULTS No Results REASON FOR VISIT Refill MEDICAL (GENERAL) HISTORY Type Description Date Medical History DIABETES Medical History HYPERTENSION Surgical History GALLBLADDER 1985 Surgical History HYSTERECTOMY 1985 Surgical History RT HAND Surgical History RT KNEE Surgical History kidney stone 1985 Goals Section No Information Health Concerns No Information MEDICAL EQUIPMENT No Information MENTAL STATUS No Information FUNCTIONAL STATUS No Information ASSESSMENTS Encounter Date Diagnosis Assessment Notes Treatment Notes Treatm ent Clinical Notes Sep, Type 2 diabetes mellitus with other diabetic kidney complication (ICD-10 - E11.29) PLAN OF TREATMENT Medication Medication Name Sig [...] Oral Once a day for 90 days Next Appt Details Provider Name:Brit Chun, 2020-10-18 08:1 5:00 AM, [address], [place], [address], Provider Name:Brit Chun, 2020-12-23 01:4 0:00 PM, [address], [address], [place], [address], Insurance Providers Payer Name Payer Address Payer Insured Patient Coverage Cover age End Phone Name Relationship to Start Date Domenic e Insured [employer] [address] [address] [phone] Whittaker,Jennifer self [place] [id number]
--- OUTSIDE RECORDS SUMMARY | 2020-12-28 10:53 | XMS REPORT ---
:1940 Author Organization [facility] Address [address] [place], [address] [place] [address] Care Team Providers Name Role Phone Adiel Unavailable [phone] PROBLEMS Type Condition ICD9-CM [id number] Onset Condition SNOMED Code Notes Code Code Dates Status Problem Closed nondisplaced S82.034A Active 412550216 transverse fracture of right patella, initial encounter Problem Pain, joint, knee, M25.561 Active 15733287 right Problem Chronic congestion J32.9 Active 57533263 of paranasal sinus Problem Closed nondisplaced S82.034D Active 747106404 transverse fracture of right patella with routine healing Problem Essential I10 Active 02351031 hypertension Problem Age related M81.0 Active 691657929 osteoporosis, unspecified pathological fracture presence Problem Gastroesophageal K21.9 Active 358936781 reflux disease, esophagitis presence not specified Problem residential (current) Z79.4 Active 858610436 use of insulin Problem Type 2 diabetes E11.9 Active 429892780 mellitus without complications Problem Diabetic E11.42 Active 187159419 polyneuropathy associated with type 2 diabetes mellitus Problem Acquired E03.9 Active 081968413 hypothyroidism Problem Decreased hearing H91.93 Active 372546785 of both ears Problem Overactive bladder N32.81 Active 101756033 Problem Type 2 diabetes E11.69 Active 03635792192206 mellitus with other specified complication Problem Type 2 diabetes E11.29 Active 155030153 mellitus with other diabetic kidney complication Problem Postmenopausal N95.2 Active 30944357 atrophic vaginitis Problem Hyperlipidemia, E78.5 Active 19619479 unspecified ALLERGIES No Known Allergies ENCOUNTERS from 1940 to 2020-10-20 Encounter Location Date Provider Diagnosis Thu [facility] [address] [facility] [address], [place] [address] IMMUNIZATIONS No Information SOCIAL HISTORY Tobacco Use: [...] Information RESULTS No Results REASON FOR VISIT lab results MEDICAL (GENERAL) HISTORY Type Description Date Medical History DIABETES Medical History HYPERTENSION Surgical History GALLBLADDER 1984 Surgical History HYSTERECTOMY 1984 Surgical History RT HAND Surgical History RT KNEE Surgical History kidney stone 1985 Goals Section No Information Health Concerns No Information MEDICAL EQUIPMENT No Information MENTAL STATUS No Information FUNCTIONAL STATUS No Information ASSESSMENTS No Information PLAN OF TREATMENT Medication Medication Name Sig [...] days Next Appt Details Provider Name:Brit Chun, 2020-12-23 01:4 0:00 PM, [address], [place], [address], Insurance Providers Payer Name Payer Address Payer Insured Patient Coverage Cover age End Phone Name Relationship to Start Date Domenic e Insured [employer] [address] [address] [phone] Jennifer Whittaker self [place]IC[place] [id number]
== END 2020-12-27 19:08 | disposition left against medical advice (07) ==
LOC: ER 14:29
DX: Z53.21 Procedure and treatment not carried out due to patient leaving prior to being seen by health care provider (principal)
CPT/HCPCS: 99281; J2930

== ENCOUNTER 2022-11-05 06:30 | Day surgery (SDC) | payer OTHER ==
--- NOTE | 2022-11-01 13:03 | RAD REPORT ---
EXAM DESCRIPTION: RAD - Chest Pa And Lat (2 Views) - 11/01/2022 12:55 pm CLINICAL HISTORY: PREOP COMPARISON: Chest Pa And Lat (2 Views) dated 10/20/2021; Abdomen 1 View (KUB) dated 12/07/2019; Abdome n 1 View (KUB) dated 09/22/2019; Chest Pa And Lat (2 Views) dated 09/05/2018 FINDINGS: Lines: None. Lungs: No evidence of edema or pneumonia. Pleural: No significant pleural effusions or pneumothorax. Cardiac: Mild cardiomegaly. Mediastinum: Within normal limits. Bones: No acute fractures. Other: None IMPRESSION: No acute cardiopulmonary disease.
[2022-11-01 13:11] LABS: Absolute Lymphocytes (CBC) 1.6 K/uL (0.7-4.9); Hematocrit 41.6 % (36.0-45.0); Lymphocytes % 16.1 % (15.3-44.8); MCV 83.7 fL (80-100); MPV 9.1 fL (7.6-11.3); RBC Red Blood Cell Count 4.97 M/uL (3.86-4.86)
[2022-11-01 13:15] LABS: Protime INR 1.23
--- NOTE | 2022-11-02 12:54 | EKG ---
Test Date: 2022-11-01 Test Time: 12:34:20 Juvenile Counselor: MAYUR MEASUREMENT RESULTS: Intervals: Rate: 84 MN: 148 QRSD: 132 QT: 432 QTc: 510 [place]: P: 69 MN: 148 QRS: -56 T: 86 INTERPRETIVE STATEMENTS: Normal sinus rhythm Left axis deviation Left ventricular hypertrophy with QRS widening Abnormal ECG Compared to ECG 04/29/2020 14:15:55 Left-axis deviation now present Left ventricular hypertrophy now present Left bundle-branch block no longer present Electronically Signed On 11-02-22 12:52:00 TODDLER NANNY by Richie Villagran
[2022-11-05] MEDS ORDERED: NA CHLORIDE 0.9% 500 ML ONE ×2 (06:48→06:58)
[2022-11-05] MEDS ORDERED: LIDOCAINE 1% 20 ML MDV ONE (06:48)
[2022-11-05] MEDS ORDERED: HEPA 1000U/500MLS 1,000 UNIT/500 ML BAG IV ONE (06:48)
[2022-11-05] MEDS ORDERED: ATROPINE SULF 1 MG/10 ML SYR IV ONE (07:04)
[2022-11-05] MEDS ORDERED: NA CHLORIDE 0.9% 0 ML IV ONE (07:04)
[2022-11-05] MEDS ORDERED: NITROGLYCERIN/D5W 25 MG/250 ML BTL IV ONE (07:05)
[2022-11-05] MEDS ORDERED: NITROGLYCERIN 100 MCG/ML SYR (for cath lab use only) IV ONE (07:05)
[2022-11-05] MEDS ORDERED: FENTANYL CITR 100 MCG/2 ML ONE (07:06)
[2022-11-05] MEDS ORDERED: MIDAZOLAM HCL 2 MG/2 ML INJ ONE (07:06)
[2022-11-05 13:04] VITALS: BP 153/68; O2SAT 96
--- NOTE | 2022-11-27 18:04 | OP ---
Date of Procedure: 11/05/2022 Surgeon: Shaun Macias MD Appeals And Generalist Clerk: Ms. Tarun Pcihardo. The patient had an Angio-Seal to close the groin site. She will remain in the hospital for 2 hours o f bedrest and then she will go home. I will see her in the office in 2 weeks. Procedure: Left heart catheterization. Indication: Chest pain, coronary artery disease. Procedure In Detail: Ms. Whittaker is 82, brought to the denture laboratory technician as an outpatient on 11/05/2022. She wa s prepped and draped in routine sterile fashion. Given Versed and fentanyl for sedation. A 6-Moldovan sheath introduced in the right common femoral artery successfully. David catheter left and right were used to do the diagnostic catheterization. She was found to have about a 40% to 50% proximal LA D stenosis before the first diagonal. She had about a 40% to 50% proximal RCA. The circumflex syste m was normal. She was left dominant. She tolerated the procedure well. There were no complications . Blood Loss: 5 cc. Postoperative Diagnoses: Moderate coronary artery disease. Plan: Plan is for medical therapy. I will start her on Imdur 30 mg 1 p.o. daily. TRUDY/LITO Voice ID: [id number] Report ID: [id number]
== END 2022-11-05 13:37 | disposition home or self-care (01) ==
LOC: CCL 06:30
DX: I25.110 Atherosclerotic heart disease of native coronary artery with unstable angina pectoris (principal); I11.0 Hypertensive heart disease with heart failure; I50.22 Chronic systolic (congestive) heart failure; I65.21 Occlusion and stenosis of right carotid artery; E11.9 Type 2 diabetes mellitus without complications; K21.9 Gastro-esophageal reflux disease without esophagitis; E03.9 Hypothyroidism, unspecified; M81.0 Age-related osteoporosis without current pathological fracture; Z87.891 Personal history of nicotine dependence; Z79.84 Long term (current) use of oral hypoglycemic drugs; Z79.4 Long term (current) use of insulin; Z79.899 Other long term (current) drug therapy; Z82.49 Family history of ischemic heart disease and other diseases of the circulatory system
CPT/HCPCS: 93005; 85025; 80048; 36415; 85610; 82947; 85730; 71046; 93458; C1893; Q9967; J2250; J3010; J7040 ×2; J1644; J0461; J0583